=== PATIENT | female | born 1990 | race Caucasian/White ===

== ENCOUNTER 2016-07-29 20:20 | Emergency (ER) | payer SELFPAY ==
[2016-07-29 20:26] VITALS: BP 127/94
== END 2016-07-29 21:09 | disposition home or self-care (01) ==
LOC: ED 20:20
DX: S01.411D Laceration without foreign body of right cheek and temporomandibular area, subsequent encounter (principal); X58.XXXD Exposure to other specified factors, subsequent encounter; Y99.8 Other external cause status; Y92.89 Other specified places as the place of occurrence of the external cause